=== PATIENT | female | born 1960 | race Caucasian/White ===

== ENCOUNTER 2024-03-12 08:42 | Emergency (ER) | payer BC, SELFPAY ==
[2024-03-12] MEDS ORDERED: LIDOCAINE 1% MPF 5 ML VIAL ONE (09:10)
--- NOTE | 2024-03-12 09:33 | RAD REPORT ---
EXAMINATION: CT HEAD WITHOUT CONTRAST CT CERVICAL SPINE WITHOUT CONTRAST CLINICAL INDICATION: Female, 63 years old. GLF, on plavix TECHNIQUE: Axial CT images from the skull base to the vertex without intravenous contrast. Axial CT i mages through the cervical spine were obtained without intravenous contrast. Sagittal and coronal reformatted images were created from the data set. Coronal and sagittal reformatted images were creat ed from the data set. One or more of the following dose reduction techniques were used: Automated exposure control, adjustment of the mA and/or kV according to patient size, and/or iterative reconstr uction. Unless otherwise specified, incidental findings do not require dedicated imaging follow-up. [id number]. COMPARISON: No prior exam. FINDINGS: Head: INTRACRANIAL: No acute intracranial hemorrhage. No hydrocephalus. No mass effect or midline shift. Ag e advanced cerebral atrophy. Moderate chronic small vessel ischemic changes. Remote left deep white matter infarcts. VASCULATURE: No visualized abnormalities in the arteries or dural venous sinuses. SCALP/SKULL: No significant soft tissue or osseous abnormalities. SINUSES: The visualized paranasal sinuses and mastoid air cells are predominantly clear. Cervical spine: ALIGNMENT: The cervical spine has normal alignment without scoliosis or spondylolisthesis. BONE: Vertebral body heights are maintained. No aggressive osseous lesions. DEGENERATIVE CHANGES: Multilevel cervical spondylosis with varying degrees of neural foraminal narrow ing. This is most pronounced at C4-5, C5-6, and C6-7. SOFT TISSUE: No significant abnormalities in the soft tissue of the neck. The visualized lung apices are clear. IMPRESSION: No acute intracranial abnormality. No acute fracture or traumatic malalignment of the cervical spine.
--- NOTE | 2024-03-12 09:51 | EDPHYS ---
Physician Documentation [facility] Name: Cate Navarro Age: 63 yrs Sex: Female : 1960 Arrival Date: 03/12/2024 Time: 08:42 Bed 7 Private MD: ED Physician Adrián Mathias HPI: 03/12 09:10 This 63 yrs old Female presents to ER via EMS with complaints of Laceration. ec2 09:10 Patient arrives today d/t concern for a GLF. Patient reports that she was walking ec2 subsequently tripped and fell and injured the bridge of her nose. No LOC, is on Plavix. Reports some head and neck pain. Patient reports she is up-to-date on her tetanus status most recently as of this past year.. Historical: - Allergies: 08:46 No Known Allergies; bp - Home Meds: 08:46 Plavix 75 mg Oral tablet 1 tab daily [Active]; bp - Immunization history:: Adult Immunizations up to date. - Infectious Disease History:: Denies. - Social history:: Smoking status: Patient denies any tobacco usage or history of. ROS: 09:10 Constitutional: as per hpi ec2 Exam: 09:10 Constitutional: GEN: NAD Head: atraumatic Eyes: EOMI Ears: External ears are ec2 normal. CV: regular rate LUNGS: no respiratory distress ABD: non-distended SKIN: 2 cm laceration to the bridge of the nose, well-approximated MSK: No C/C/L-spine deformities or tenderness. Vital Signs: 08:45 BP 153 / 98; Pulse 90; Resp 16; Temp 98; Pulse Ox 97% ; bp 09:58 BP 136 / 73; Pulse 75; Resp 18; Temp 98.1; Pulse Ox 100% on R/A; ap3 Laceration: 09:39 Wound Repair of 2cm ( 0.8in ) subcutaneous laceration to nose. Distal ec2 neuro/vascular/tendon intact. Anesthesia: Local anesthetic administered with 10 mls of 1% lidocaine. Wound prep: Moderate cleansing by nurse. Skin closed with 3 4-0 Prolene using simple sutures and sterile technique. Patient tolerated well. MDM: 09:05 Medical Screening Exam initiated ec2 09:10 Data reviewed: vital signs, nurses notes. ED course: Patient arrives today for ec2 evaluation of a ground-level fall. Examination revealing for reassuring examination with a laceration to the bridge of the nose. Given the patient's blood thinner status, will obtain CT imaging. Differential diagnosis includes intracranial brain bleed, laceration, c-spine injury. 09:39 ED course: CT Head and c-spine shows no acute traumatic process. laceration repaired as ec2 above w/o issue. will d/c to home, return precautions given.. 03/12 09:09 Order name: CT Head C Spine; Complete Time: 09:39 ec2 Administered Medications: :58 Drug: Lidocaine Infiltration (1 %) 10 ml 20 ml Infiltration once; to bedside {Note: by ap3 provider.} Volume: 20 ml; Route: Infiltration; :58 Follow up: Response: No adverse reaction ap3 Disposition Summary: 03/12/24 09:50 Discharge Ordered Notes: You should return to have the stitches removed in 7-10 days
Location: Home ec2 Condition: Stable ec2 Diagnosis - Nasal Laceration ec2 Followup: ec2 - With: Private Physician - When: - Reason: Re-evaluation by your physician Discharge Instructions: - Discharge Summary Sheet ec2 - Laceration Care, Adult, [id number] ec2 Forms: - Medication Reconciliation Form ec2 - Antibiotic Education ec2 - Prescription Opioid Use ec2 - Patient Portal Instructions ec2 - Leadership Thank You Letter ec2 Signatures: Dispatcher [employer] Efrain Bullard RN RN bp Prokisch, Amanda, RN RN ap3 Adrián Mathias MD MD ec2
--- NOTE | 2024-03-12 09:51 | ER ---
Nurse's Notes [facility] Name: Cate Navarro Age: 63 yrs Sex: Female : 1960 Arrival Date: 03/12/2024 Time: 08:42 Bed 7 Private MD: Diagnosis: Nasal Laceration Presentation: 03/12 08:45 Chief complaint: EMS states: R KNEE ABRASION AND NASAL BRIDGE LAC AFTER SLIP/FALL AT bp WORK. Coronavirus screen: At this time, the client does not indicate any symptoms associated with coronavirus-19. Ebola Screen: No symptoms or risks identified at this time. Complicating Factors: There are no complicating factors for this patient. Initial Sepsis Screen: Does the patient meet any 2 criteria? No. Patient's initial sepsis screen is negative. Does the patient have a suspected source of infection? No. Patient's initial sepsis screen is negative. Risk Assessment: Do you want to hurt yourself or someone else? Patient reports no desire to harm self or others. Onset of symptoms was March 12, 2024 at 07:45. 08:45 Method Of Arrival: EMS: [facility] bp 08:45 Acuity: RUPAL 3 bp 08:45 Care prior to arrival: Glucose check: 98. bp Triage Assessment: 08:46 General: Appears in no apparent distress. Behavior is calm, cooperative, appropriate bp for age. Pain: Complains of pain in face. EENT: No deficits noted. Neuro: Denies SYNCOPE. Cardiovascular: No deficits noted. Respiratory: No deficits noted. GI: No signs and/or symptoms were reported involving the gastrointestinal system. : No signs and/or symptoms were reported regarding the genitourinary system. Derm: No deficits noted. Musculoskeletal: No deficits noted. Injury Description: Laceration sustained to nose. Historical: - Allergies: 08:46 No Known Allergies; bp - Home Meds: 08:46 Plavix 75 mg Oral tablet 1 tab daily [Active]; bp - Immunization history:: Adult Immunizations up to date. - Infectious Disease History:: Denies. - Social history:: Smoking status: Patient denies any tobacco usage or history of. Screenin:48 Abuse screen: Denies threats or abuse. Nutritional screening: No deficits noted. ap3 Tuberculosis screening: No symptoms or risk factors identified. 09:59 [facility] ED Fall Risk Assessment (Adult) History of falling in the last 3 months, ap3 including since admission Yes- fall prone (multiple falls) (3 pts) Confusion or Disorientation No (0 pts) Intoxicated or Sedated No (0 pts) Impaired Gait No (0 pts) Mobility Assist Device Used No (0 pt) Altered Elimination No (0 pt) Score/Fall Risk Level 3 or more points = High Risk Oriented to surroundings, Maintained a safe environment, Educated pt \T\ family on fall prevention, incl call for assistance when getting out of bed, Assessed \T\ reinforced patient's understanding of fall precautions, Hourly rounding (assess needs \T\ fall precautionary measures) done, Used ambulatory aids as needed (educated on \T\ assisted with), Used gait belt as appropriate Implemented a Fall Risk Plan of Care, Apply high fall risk patient identification: yellow non skid footwear/ fall signage, Remained w/in arm's length of patient and in sight while toileting, Offered frequent toileting (1:1 observation), Remained with patient while ambulating. Assessment: 08:48 General: Appears in no apparent distress. Behavior is calm, cooperative, appropriate ap3 for age. Pain: Complains of pain in nose. Neuro: Level of Consciousness is awake, alert, obeys commands, Oriented to person, place, time, situation, Appropriate for age. Cardiovascular: Patient's skin is warm and dry. Respiratory: Airway is patent Respiratory effort is even, unlabored, Respiratory pattern is regular, symmetrical. Derm: Wound noted nose. Musculoskeletal:. 10:00 Injury Description: Laceration is. ap3 Vital Signs: 08:45 BP 153 / 98; Pulse 90; Resp 16; Temp 98; Pulse Ox 97% ; bp 09:58 BP 136 / 73; Pulse 75; Resp 18; Temp 98.1; Pulse Ox 100% on R/A; ap3 ED Course: 08:44 Patient arrived in ED. bp 08:46 Triage completed. bp 08:48 Diamond Bailey, CRUZ is Primary Nurse. ap3 08:48 Arm band placed on. bp 08:49 Patient has correct armband on for positive identification. Bed in low position. Call ap3 light in reach. Side rails up X2. Provided Education on: call light education. Pulse ox on. NIBP on. 09:00 Adrián Mathias MD is Attending Physician. ec2 09:20 CT Head C Spine In Process Unspecified. EDMS 09:59 No provider procedures requiring assistance completed. Patient did not have IV access ap3 during this emergency room visit. Administered Medications: :58 Drug: Lidocaine Infiltration (1 %) 10 ml 20 ml Infiltration once; to bedside {Note: by ap3 provider.} Volume: 20 ml; Route: Infiltration; :58 Follow up: Response: No adverse reaction ap3 Medication: 10:00 VIS not applicable for this client. ap3 Outcome: 09:50 Discharge ordered by . ec2 09:59 Discharged to home ambulatory, ap3 09:59 Condition: good 09:59 Discharge instructions given to patient, Instructed on discharge instructions, follow up and referral plans. wound care, Demonstrated understanding of instructions, follow-up care, wound care, 10:00 Patient left the ED. ap3 Signatures: Dispatcher [employer] EDEfrain Khan RN RN Diamond Bailey RN RN ap3 Adrián Mathias MD MD ec2
[2024-03-12 10:17] VITALS: BP 136/73; TEMP 98.1; O2SAT 100
== END 2024-03-12 10:00 | disposition home or self-care (01) ==
LOC: ER 08:42
DX: S01.21XA Laceration without foreign body of nose, initial encounter (principal)
CPT/HCPCS: 12011; 70450; 72125; 99284; J2003

== ENCOUNTER 2024-03-21 13:26 | Emergency (ER) | payer BC, OTHER ==
[2024-03-21] MEDS ORDERED: LIDOCAINE HCL JELLY 2% 6 ML SYRINGE TOP ONE (13:45)
--- NOTE | 2024-03-21 14:22 | EDPHYS ---
Physician Documentation [facility] Name: Cate Navarro Age: 63 yrs Sex: Female : 1960 Arrival Date: 03/21/2024 Time: 13:26 Bed 12 Private MD: ED Physician Adrián Mathias HPI: 03/21 13:55 This 63 yrs old Female presents to ER via Ambulatory with complaints of Suture Removal. cp 13:55 The patient has sutures on the bridge of nose. Previous treatment: The patient was cp initially treated on March 12, 2024, the care was rendered at [facility], Treatment type: The patient's original treatment included sutures. 13:57 Sutures/leah progress: The patient has no c/o's. The wound is well-healing with no cp redness, swelling, discharge, or dehiscence reported. Historical: - Allergies: 13:37 No Known Allergies; ap3 - Immunization history:: Client reports receiving the 2nd dose of the Covid vaccine. - Infectious Disease History:: Denies. - Social history:: Smoking status: Patient denies any tobacco usage or history of. ROS: 14:00 Skin: Positive for history of repaired laceration bridge of nose with sutures, cp 14:00 Constitutional: History per HPI cp 14:00 All other systems are negative, Exam: 14:05 Constitutional: The patient appears in no acute distress, alert, awake, non-toxic, well cp developed, well nourished, 14:05 Head/face: Noted is repaired laceration noted bridge of nose with 3 black colored sutures in place. 14:05 Eyes: Periorbital structures: appear normal, Conjunctiva: normal, no exudate, no injection, Sclera: no appreciated abnormality, Lids and lashes: appear normal, bilaterally, 14:05 ENT: External ear(s): are unremarkable, Mouth: Lips: moist, Oral mucosa: moist, Posterior pharynx: Airway: no evidence of obstruction, patent, 14:05 Chest/axilla: Inspection: normal, 14:05 Cardiovascular: Rate: normal, 14:05 Respiratory: the patient does not display signs of respiratory distress, Respirations: normal, no use of accessory muscles, no retractions, labored breathing, is not present, Breath sounds: are clear throughout, no decreased breath sounds, Vital Signs: 13:36 BP 120 / 69; Pulse 68; Resp 17; Temp 98.2; Pulse Ox 100% ; Weight 73.94 kg; Height 5 ap3 ft. 3 in. ; 13:36 Body Mass Index 28.87 (73.94 kg, 160.02 cm) ap3 Procedures: 14:20 Suture/Staple removal: Removed 3 sutures, from bridge of nose, site appears well cp healed, dressed with band aid, steri strips. Patient tolerated well. MDM: 13:40 Medical Screening Exam initiated cp 14:21 Data reviewed: vital signs, nurses notes, and as a result, I will discharge patient. cp 14:21 Counseling: I had a detailed discussion with the patient and/or guardian regarding the cp historical points, exam findings, and any diagnostic results supporting the discharge/admit diagnosis, to return to the emergency department if symptoms worsen or persist or if there are any questions or concerns that arise at home. 03/21 13:44 Order name: Suture Removal; Complete Time: 13:47 cp Administered Medications: 13:49 Drug: Lidocaine Mucous Membrane Gel 2 % 1 ea 15 ml Mucous Membrane once Volume: 15 ml; ap3 Route: Mucous Membrane; Disposition: 03/22 13:41 Chart complete. cp Disposition Summary: 03/21/24 14:21 Discharge Ordered Notes: Location: Home cp Problem: new cp Symptoms: have improved cp Condition: Stable cp Diagnosis - Encounter for removal of sutures cp Followup: cp - With: Private Physician - When: 2 - 3 days - Reason: Worsening of condition Discharge Instructions: - Discharge Summary Sheet cp - Suture Removal, Care After cp Forms: - Medication Reconciliation Form cp - Antibiotic Education cp - Prescription Opioid Use cp - Patient Portal Instructions cp - Leadership Thank You Letter cp Signatures: Tejas Leo PA PA cp Diamond Bailey RN RN ap3 Corrections: (The following items were deleted from the chart) 03/21 13:37 13:37 PMHx: None; ap3 ap3 13:57 13:55 Previous treatment: Treatment type: The patient's original treatment included cp sutures, cp 23:52 23:51 Skin: Positive for history of repaired laceration bridge of nose with sutures, cp cp 23:57 23:53 Constitutional: The patient appears in no acute distress, alert, awake, cp non-toxic, well developed, well nourished, cp 23:57 23:53 Head/face: Noted is repaired laceration noted bridge of nose with 3 black colored cp sutures in place. cp 23:57 23:53 Eyes: Periorbital structures: appear normal, Conjunctiva: normal, no exudate, no cp injection, Sclera: no appreciated abnormality, Lids and lashes: appear normal, bilaterally, cp 23:57 23:53 ENT: External ear(s): are unremarkable, Mouth: Lips: moist, Oral mucosa: moist, cp Posterior pharynx: Airway: no evidence of obstruction, patent, cp 23:57 23:53 Chest/axilla: Inspection: normal, cp cp 23:57 23:53 Cardiovascular: Rate: normal, cp cp 23:57 23:53 Respiratory: the patient does not display signs of respiratory distress, cp Respirations: normal, no use of accessory muscles, no retractions, labored breathing, is not present, Breath sounds: are clear throughout, no decreased breath sounds, cp
--- NOTE | 2024-03-21 14:22 | ER ---
Nurse's Notes [facility] Name: Cate Navarro Age: 63 yrs Sex: Female : 1960 Arrival Date: 03/21/2024 Time: 13:26 Bed 12 Private MD: Diagnosis: Encounter for removal of sutures Presentation: 03/21 13:36 Chief complaint: Patient states: she had sutures placed on the bridge of her nose and ap3 it is time to have them removed. Coronavirus screen: At this time, the client does not indicate any symptoms associated with coronavirus-19. Ebola Screen: No symptoms or risks identified at this time. Initial Sepsis Screen: Does the patient meet any 2 criteria? No. Patient's initial sepsis screen is negative. Does the patient have a suspected source of infection? No. Patient's initial sepsis screen is negative. Risk Assessment: Do you want to hurt yourself or someone else? Patient reports no desire to harm self or others. Onset of symptoms is unknown. 13:36 Method Of Arrival: Ambulatory ap3 13:36 Acuity: RUPAL 4 ap3 Triage Assessment: 13:37 General: Appears in no apparent distress. Behavior is calm, cooperative, appropriate ap3 for age. Pain: Denies pain. Neuro: Level of Consciousness is awake, alert, obeys commands, Oriented to person, place, time, situation, Appropriate for age. Cardiovascular: Patient's skin is warm and dry. Respiratory: Airway is patent Respiratory effort is even, unlabored, Respiratory pattern is regular, symmetrical. Derm: sutures present on bridge of nose. Historical: - Allergies: 13:37 No Known Allergies; ap3 - Immunization history:: Client reports receiving the 2nd dose of the Covid vaccine. - Infectious Disease History:: Denies. - Social history:: Smoking status: Patient denies any tobacco usage or history of. Screenin:38 [facility] ED Fall Risk Assessment (Adult) History of falling in the last 3 months, ap3 including since admission Yes- single mechanical fall (1 pt) Confusion or Disorientation No (0 pts) Intoxicated or Sedated No (0 pts) Impaired Gait No (0 pts) Mobility Assist Device Used No (0 pt) Altered Elimination No (0 pt) Score/Fall Risk Level 0 - 2 = Low Risk Oriented to surroundings, Maintained a safe environment, Educated pt \T\ family on fall prevention, incl call for assistance when getting out of bed, Assessed \T\ reinforced patient's understanding of fall precautions, Hourly rounding (assess needs \T\ fall precautionary measures) done, Used ambulatory aids as needed (educated on \T\ assisted with), Used gait belt as appropriate. Abuse screen: Denies threats or abuse. Nutritional screening: No deficits noted. Tuberculosis screening: No symptoms or risk factors identified. Vital Signs: 13:36 BP 120 / 69; Pulse 68; Resp 17; Temp 98.2; Pulse Ox 100% ; Weight 73.94 kg; Height 5 ap3 ft. 3 in. ; 13:36 Body Mass Index 28.87 (73.94 kg, 160.02 cm) ap3 ED Course: 13:33 Patient arrived in ED. sj2 13:34 Tejas Leo PA is PHCP. cp 13:34 Adrián Mathias MD is Attending Physician. cp 13:37 Triage completed. ap3 13:38 Arm band placed on right wrist. ap3 13:38 No provider procedures requiring assistance completed. ap3 13:49 Diamond Bailey, CRUZ is Primary Nurse. ap3 14:39 Patient has correct armband on for positive identification. Provided Education on: ap3 discharge instructions. 14:39 Patient did not have IV access during this emergency room visit. ap3 Administered Medications: 13:49 Drug: Lidocaine Mucous Membrane Gel 2 % 1 ea 15 ml Mucous Membrane once Volume: 15 ml; ap3 Route: Mucous Membrane; Medication: 14:39 VIS not applicable for this client. ap3 Outcome: 14:21 Discharge ordered by . cp 14:38 Discharged to home ambulatory, ap3 14:38 Condition: good 14:38 Discharge instructions given to patient, Instructed on discharge instructions, follow up and referral plans. Demonstrated understanding of instructions, follow-up care, 14:39 Patient left the ED. ap3 Signatures: Tejas Leo PA PA cp Prokisch, Amanda, RN RN ap3 [place] Rodriguez sj2 Corrections: (The following items were deleted from the chart) 13:37 13:37 PMHx: None; ap3 ap3
[2024-03-21 15:09] VITALS: BP 120/69; TEMP 98.2; O2SAT 100
== END 2024-03-21 14:39 | disposition home or self-care (01) ==
LOC: ER 13:26
DX: Z48.02 Encounter for removal of sutures (principal)
CPT/HCPCS: 99283